=== PATIENT | male | born 1970 | race Caucasian/White ===

== ENCOUNTER → 2016-10-05 | Outpatient (REF) | payer BC ==
[2016-10-05 19:26] LABS: ALBUMIN 4.2 GM/DL (3.2-5.2); ALBUMIN/GLOBULIN RATIO 1.31 (1.00-1.93); ALKALINE PHOSPHATASE 76 U/L (45-117); ALT/SGPT 35 U/L (12-78); ANION GAP 6 MEQ/L (8-16); AST/SGOT 19 U/L (15-37); BILIRUBIN,TOTAL 0.4 MG/DL (0.2-1.0); BLOOD UREA NITROGEN 16 MG/DL (7-18); CALCIUM LEVEL 8.7 MG/DL (8.5-10.1); CARBON DIOXIDE LEVEL 27 MEQ/L (21-32); CHLORIDE LEVEL 105 MEQ/L (98-107); CHOLESTEROL LEVEL 218 MG/DL (<200); CREATININE FOR GFR 1.32 MG/DL (0.70-1.30); GLOMERULAR FILTRATION RATE > 60.0 (>60); GLUCOSE, FASTING 84 MG/DL (70-105); SODIUM LEVEL 138 MEQ/L (136-145); TOTAL PROTEIN 7.4 GM/DL (6.4-8.2); TRIGLYCERIDES LEVEL 458 MG/DL (<150)
[2016-10-06 10:21] LABS: FOLATE > 24.0 NG/ML; VITAMIN B12 LEVEL 485 PG/ML
[2016-10-07 14:15] LABS: %CD3+CD4+CD8+ 0.9 % (Not Estab.); %CD3+CD4+CD8- 21.3 % (Not Estab.); ABS CD3+CD4+CD8+ 29 /uL (Not Estab.); ABS CD3+CD4+CD8- 682 /uL (Not Estab.); ABS CD3+CD4-CD8+ 1504 /uL (Not Estab.); ABS CD3+CD4-CD8- 32 /uL (Not Estab.); CD4/CD8 NYSDOH RATIO 0.45 (Not Estab.); Eosinophils 5 % (.); HCT 40.1 % (37.5-51.0); HGB 13.9 g/dL (12.6-17.7); Monocytes 7 % (.); Neutrophils 28 % (.); WBC 5.4 x10E3/uL (3.4-10.8)
== END ==
LOC: M SFHCPLAZ 15:38
PROVIDERS: ATTEND Internal Medicine Infectious Disease
DX: B20 Human immunodeficiency virus [HIV] disease (principal); E78.5 Hyperlipidemia, unspecified; G62.9 Polyneuropathy, unspecified

== ENCOUNTER → 2017-02-07 | Outpatient (REF) | payer BC ==
[2017-02-07 18:53] LABS: ALBUMIN/GLOBULIN RATIO 1.11 (1.00-1.93); ALKALINE PHOSPHATASE 96 U/L (45-117); ALT/SGPT 31 U/L (12-78); ANION GAP 6 MEQ/L (8-16); AST/SGOT 11 U/L (15-37); BILIRUBIN,TOTAL 0.3 MG/DL (0.2-1.0); BLOOD UREA NITROGEN 14 MG/DL (7-18); CALCIUM LEVEL 8.7 MG/DL (8.5-10.1); CARBON DIOXIDE LEVEL 28 MEQ/L (21-32); CHLORIDE LEVEL 106 MEQ/L (98-107); CREATININE FOR GFR 1.26 MG/DL (0.70-1.30); GLOMERULAR FILTRATION RATE > 60.0 (>60); GLUCOSE, FASTING 114 MG/DL (70-105); SODIUM LEVEL 140 MEQ/L (136-145); TOTAL PROTEIN 7.6 GM/DL (6.4-8.2)
[2017-02-11 08:08] LABS: Eosinophils 4 % (Not Estab.); HCT 45.8 % (37.5-51.0); HGB 15.7 g/dL (12.6-17.7); Lyme Disease IgG/IgM Antibodie <0.91 ISR (0.00-0.90); Lyme Disease IgM Ab Quantitati <0.80 index (0.00-0.79); Monocytes 8 % (Not Estab.); Neutrophils 41 % (Not Estab.); WBC 5.2 x10E3/uL (3.4-10.8)
== END ==
LOC: M SFHCPLAZ 15:28
PROVIDERS: ATTEND Internal Medicine Infectious Disease
DX: M25.50 Pain in unspecified joint (principal); B20 Human immunodeficiency virus [HIV] disease

== ENCOUNTER → 2017-06-01 | Outpatient (REF) | payer BC ==
[2017-06-01 18:31] LABS: BASO # 0.1 10^3/uL (0.0-0.2); BASO % 1.6 % (0.0-1.0); EOS # 0.3 10^3/uL (0.0-0.50); EOS % 5.8 % (0.0-3.0); HEMATOCRIT 43.9 % (42.0-52.0); HEMOGLOBIN 14.7 g/dl (14.0-18.0); IMMATURE GRANULOCYTE % 0.2 % (0-3.0); LYMPH # 2.2 10^3/uL (1.5-4.5); LYMPH % 49.4 % (24.0-44.0); MEAN CORPUSCULAR HEMOGLOBIN 28.9 pg (27.0-33.0); MEAN CORPUSCULAR HGB CONC 33.5 g/dl (32.0-36.5); MEAN CORPUSCULAR VOLUME 86.2 fl (80.0-96.0); MONO # 0.4 10^3/uL (0.0-0.8); MONO % 8.9 % (0.0-5.0); NEUTROPHILS # 1.5 10^3/uL (1.8-7.7); NEUTROPHILS % 34.1 % (36.0-66.0); PLATELET COUNT, AUTOMATED 333 10^3/uL (150-450); RED BLOOD COUNT 5.09 10^6/uL (4.30-6.10); RED CELL DISTRIBUTION WIDTH 12.2 % (11.5-14.5); WHITE BLOOD COUNT 4.5 10^3/uL (4.0-10.0)
[2017-06-01 18:55] LABS: ERYTHROCYTE SEDIMENTATION RATE 11 mm/hr (0-15)
[2017-06-01 20:29] LABS: ALBUMIN 3.9 GM/DL (3.2-5.2); ALKALINE PHOSPHATASE 90 U/L (45-117); ALT/SGPT 31 U/L (12-78); ANION GAP 10 MEQ/L (8-16); AST/SGOT 19 U/L (7-37); BILIRUBIN,TOTAL 0.3 MG/DL (0.2-1.0); BLOOD UREA NITROGEN 17 MG/DL (7-18); C REACTIVE PROTEIN QUANTITATIV < 0.30 MG/DL (0.00-0.30); CALCIUM LEVEL 8.6 MG/DL (8.5-10.1); CARBON DIOXIDE LEVEL 28 MEQ/L (21-32); CHLORIDE LEVEL 103 MEQ/L (98-107); CREATININE FOR GFR 1.43 MG/DL (0.70-1.30); GLOMERULAR FILTRATION RATE 56.7 (>60); GLUCOSE, FASTING 94 MG/DL (70-100); RHEUMATOID FACTOR QUANT < 10.0 IU/ML (0-15.0); SODIUM LEVEL 141 MEQ/L (136-145); TOTAL PROTEIN 7.8 GM/DL (6.4-8.2)
[2017-06-07 00:06] LABS: ANTI DOUBLE STRAND-DNA AB 2 IU/mL (0-9); ANTINUCLEAR ANTIBODIES DIRECT Positive (Negative); HLA-B27 Negative (.); Lyme Disease IgG/IgM Antibodie <0.91 ISR (0.00-0.90); Lyme Disease IgM Ab Quantitati <0.80 index (0.00-0.79); RNP ANTIBODIES 1.2 AI (0.0-0.9); SJOGREN'S ANTI SS-A <0.2 AI (0.0-0.9); SJOGREN'S ANTI SS-B <0.2 AI (0.0-0.9); SMITH ANTIBODIES <0.2 AI (0.0-0.9)
[2017-06-07 00:06] LABS: CYCLIC CITRULLINATED PEPTIDE 11 units (0-19)
== END ==
LOC: M LABDRAW1 15:30
DX: M06.4 Inflammatory polyarthropathy (principal)

== ENCOUNTER → 2017-06-01 | Outpatient (REF) | payer BC ==
[2017-06-01 18:36] LABS: APPEARANCE, URINE CLEAR (CLEAR); BACTERIA, URINE AUTO NEGATIVE (NEGATIVE); BILIRUBIN, URINE AUTO NEGATIVE (NEGATIVE); BLOOD, URINE BLOOD NEGATIVE (NEGATIVE); COLOR, URINE YELLOW (YELLOW); GLUCOSE, URINE (UA) AUTO NEGATIVE (NEGATIVE); KETONE, URINE AUTO NEGATIVE (NEGATIVE); LEUKOCYTE ESTERASE, URINE AUTO TRACE (NEGATIVE); NITRITE, URINE AUTO NEGATIVE (NEGATIVE); PROTEIN, URINE AUTO NEGATIVE (NEGATIVE); RBC, URINE AUTO 0 /HPF (0-3); SPECIFIC GRAVITY URINE AUTO 1.016 (1.002-1.035); SQUAMOUS EPITHELIAL CELL UR AU 0 /HPF (0-6); UROBILINOGEN, URINE AUTO 0.2 mg/dL (0.0-2.0); WBC, URINE AUTO 1 /HPF (0-3)
[2017-06-01 20:44] LABS: ALBUMIN/GLOBULIN RATIO 1.11 (1.00-1.93); ALKALINE PHOSPHATASE 86 U/L (45-117); ALT/SGPT 29 U/L (12-78); ANION GAP 9 MEQ/L (8-16); AST/SGOT 17 U/L (7-37); BILIRUBIN,TOTAL 0.3 MG/DL (0.2-1.0); BLOOD UREA NITROGEN 17 MG/DL (7-18); CALCIUM LEVEL 8.8 MG/DL (8.5-10.1); CARBON DIOXIDE LEVEL 27 MEQ/L (21-32); CHLORIDE LEVEL 104 MEQ/L (98-107); CREATININE FOR GFR 1.43 MG/DL (0.70-1.30); GLOMERULAR FILTRATION RATE 56.7 (>60); GLUCOSE, FASTING 95 MG/DL (70-100); SODIUM LEVEL 140 MEQ/L (136-145); TOTAL PROTEIN 7.6 GM/DL (6.4-8.2)
[2017-06-01 21:28] LABS: CHLAMYDIA DNA AMPLIFICATION NEGATIVE (NEGATIVE); GC DNA AMPLIFICATION NEGATIVE (NEGATIVE)
[2017-06-03 14:10] LABS: QUANTIFERON GOLD TB Negative (Negative); TB Test (QFT) Antigen 0.05 IU/mL (.); TB Test (QFT) Antigen Minus Ni <0.01 IU/mL (.); TB Test (QFT) Mitogen 5.14 IU/mL (.); TB Test (QFT) Nil 0.07 IU/mL (.)
[2017-06-06 14:13] LABS: HIV-1 RNA PCR QUANT 2 LC550285 <20 copies/mL (.)
[2017-06-08 00:07] LABS: % CD8 Pos Lymph 45.6 % (12.0-35.5); %CD4 Pos Lymphs 29.6 % (30.8-58.5); ABS Basophils 0.1 x10E3/uL (0.0-0.2); ABS Eosinophils 0.2 x10E3/uL (0.0-0.4); ABS Lymphs 2.3 x10E3/uL (0.7-3.1); ABS Monocytes 0.3 x10E3/uL (0.1-0.9); ABS Neutophils 1.5 x10E3/uL (1.4-7.0); Abs CD4 Helper 681 /uL (359-1519); Abs CD8 Suppres 1049 /uL (109-897); CD4/CD8 Ratio 0.65 (0.92-3.72); Eosinophils 6 % (Not Estab.); HCT 42.3 % (37.5-51.0); HGB 14.5 g/dL (13.0-17.7); Immature Grans 0 % (Not Estab.); Lymphocytes 51 % (Not Estab.); MCH 29.2 pg (26.6-33.0); MCHC 34.3 g/dL (31.5-35.7); MCV 85 fL (79-97); Monocytes 7 % (Not Estab.); Neutrophils 34 % (Not Estab.); Platelets 316 x10E3/uL (150-379); RBC 4.97 x10E6/uL (4.14-5.80); RDW 13.4 % (12.3-15.4); RPR Non Reactive (Non Reactive); T PALLIDUM ANTIBODIES Positive (Negative); T PALLIDUM IMMUNOBLOT Positive (Negative); WBC 4.4 x10E3/uL (3.4-10.8)
== END ==
LOC: M LABDRAW1 15:25
DX: B20 Human immunodeficiency virus [HIV] disease (principal)

== ENCOUNTER → 2017-08-04 | Outpatient (REF) | payer BC ==
[2017-08-04 19:16] LABS: BASO # 0.1 10^3/uL (0.0-0.2); EOS # 0.8 10^3/uL (0.0-0.50); EOS % 14.7 % (0.0-3.0); HEMATOCRIT 41.5 % (42.0-52.0); HEMOGLOBIN 14.3 g/dl (13.5-17.5); IMMATURE GRANULOCYTE % 0.4 % (0-3.0); LYMPH # 2.1 10^3/uL (1.5-4.5); MEAN CORPUSCULAR HGB CONC 34.5 g/dl (32.0-36.5); MEAN CORPUSCULAR VOLUME 84.2 fl (80.0-96.0); MONO # 0.5 10^3/uL (0.0-0.8); MONO % 10.4 % (0.0-5.0); NEUTROPHILS # 1.6 10^3/uL (1.8-7.7); NEUTROPHILS % 31.5 % (36.0-66.0); PLATELET COUNT, AUTOMATED 310 10^3/uL (150-450); RED BLOOD COUNT 4.93 10^6/uL (4.30-6.10); RED CELL DISTRIBUTION WIDTH 12.9 % (11.5-14.5); WHITE BLOOD COUNT 5.1 10^3/uL (4.0-10.0)
[2017-08-04 19:27] LABS: POSITIVE MORPH POS FLAG
== END ==
LOC: M LABDRAW1 15:20
DX: M79.7 Fibromyalgia (principal); M06.4 Inflammatory polyarthropathy
CPT/HCPCS: 85027

== ENCOUNTER → 2017-11-02 | Outpatient (REF) | payer BC ==
[2017-11-02 16:36] LABS: ALBUMIN 3.5 GM/DL (3.2-5.2); ALBUMIN/GLOBULIN RATIO 1.06 (1.00-1.93); ALKALINE PHOSPHATASE 72 U/L (45-117); ALT/SGPT 29 U/L (12-78); ANION GAP 6 MEQ/L (8-16); AST/SGOT 14 U/L (7-37); BILIRUBIN,TOTAL 0.2 MG/DL (0.2-1.0); BLOOD UREA NITROGEN 10 MG/DL (7-18); CALCIUM LEVEL 8.4 MG/DL (8.5-10.1); CARBON DIOXIDE LEVEL 29 MEQ/L (21-32); CHLORIDE LEVEL 108 MEQ/L (98-107); CREATININE FOR GFR 1.35 MG/DL (0.70-1.30); GLOMERULAR FILTRATION RATE > 60.0 (>60); GLUCOSE, FASTING 106 MG/DL (70-100); POTASSIUM SERUM 4.2 MEQ/L (3.5-5.1); SODIUM LEVEL 143 MEQ/L (136-145); TOTAL PROTEIN 6.8 GM/DL (6.4-8.2)
[2017-11-02 19:58] LABS: APPEARANCE, URINE CLEAR (CLEAR); BACTERIA, URINE AUTO NEGATIVE (NEGATIVE); BILIRUBIN, URINE AUTO NEGATIVE (NEGATIVE); BLOOD, URINE BLOOD NEGATIVE (NEGATIVE); COLOR, URINE YELLOW (YELLOW); GLUCOSE, URINE (UA) AUTO NEGATIVE (NEGATIVE); KETONE, URINE AUTO TRACE mg/dL (NEGATIVE); LEUKOCYTE ESTERASE, URINE AUTO NEGATIVE (NEGATIVE); NITRITE, URINE AUTO NEGATIVE (NEGATIVE); PROTEIN, URINE AUTO NEGATIVE (NEGATIVE); RBC, URINE AUTO 0 /HPF (0-3); SPECIFIC GRAVITY URINE AUTO 1.015 (1.002-1.035); SQUAMOUS EPITHELIAL CELL UR AU 0 /HPF (0-6); UROBILINOGEN, URINE AUTO 0.2 mg/dL (0.0-2.0); WBC, URINE AUTO 0 /HPF (0-3)
[2017-11-02 21:18] LABS: CHLAMYDIA DNA AMPLIFICATION NEGATIVE (NEGATIVE); GC DNA AMPLIFICATION NEGATIVE (NEGATIVE)
[2017-11-17 09:39] LABS: CHLAMYDIA PHARYNGEAL APTIMA Negative (Negative); CHLAMYDIA RECTAL APTIMA Negative (Negative); GC PHARYNGEAL APTIMA Negative (Negative); GC RECTAL APTIMA Negative (Negative); HIV-1 RNA PCR QUANT 2 LC550285 <20 copies/mL (.); HSV TYPE II IgG SPECIFIC 0.95 index (0.00-0.90); HSV-2 IgG Confirmation Negative (Negative); RPR Non Reactive (Non Reactive)
== END ==
LOC: M SFHCPLAZ 12:00
DX: Z72.52 High risk homosexual behavior (principal); B20 Human immunodeficiency virus [HIV] disease
CPT/HCPCS: 80053

== ENCOUNTER → 2017-11-08 | Outpatient (REF) | payer BC ==
[2017-11-11 00:05] LABS: % CD8 Pos Lymph 44.7 % (12.0-35.5); %CD4 Pos Lymphs 31.6 % (30.8-58.5); ABS Eosinophils 0.2 x10E3/uL (0.0-0.4); ABS Lymphs 1.5 x10E3/uL (0.7-3.1); ABS Monocytes 0.4 x10E3/uL (0.1-0.9); ABS Neutophils 2.6 x10E3/uL (1.4-7.0); Abs CD4 Helper 474 /uL (359-1519); Abs CD8 Suppres 671 /uL (109-897); CD4/CD8 Ratio 0.71 (0.92-3.72); Eosinophils 4 % (Not Estab.); HCT 42.5 % (37.5-51.0); HGB 14.2 g/dL (13.0-17.7); Immature Grans 0 % (Not Estab.); Lymphocytes 31 % (Not Estab.); MCH 29.7 pg (26.6-33.0); MCHC 33.4 g/dL (31.5-35.7); MCV 89 fL (79-97); Monocytes 9 % (Not Estab.); Neutrophils 55 % (Not Estab.); Platelets 273 x10E3/uL (150-379); RBC 4.78 x10E6/uL (4.14-5.80); RDW 14.2 % (12.3-15.4); WBC 4.7 x10E3/uL (3.4-10.8)
== END ==
LOC: M SFHCPLAZ 15:34
DX: B20 Human immunodeficiency virus [HIV] disease (principal); Z72.52 High risk homosexual behavior

== ENCOUNTER → 2017-12-28 | Outpatient (REF) | payer BC ==
[2017-12-28 18:23] LABS: CHLAMYDIA DNA AMPLIFICATION NEGATIVE (NEGATIVE); GC DNA AMPLIFICATION POSITIVE (NEGATIVE)
== END ==
LOC: M LAB REF 16:36
DX: Z11.3 Encounter for screening for infections with a predominantly sexual mode of transmission (principal)

== ENCOUNTER → 2018-02-28 | Outpatient (REF) | payer MEDICAID ==
[2018-02-28 18:01] LABS: APPEARANCE, URINE CLEAR (CLEAR); BACTERIA, URINE AUTO NEGATIVE (NEGATIVE); BILIRUBIN, URINE AUTO NEGATIVE (NEGATIVE); BLOOD, URINE BLOOD NEGATIVE (NEGATIVE); COLOR, URINE YELLOW (YELLOW); GLUCOSE, URINE (UA) AUTO NEGATIVE (NEGATIVE); KETONE, URINE AUTO NEGATIVE (NEGATIVE); LEUKOCYTE ESTERASE, URINE AUTO NEGATIVE (NEGATIVE); NITRITE, URINE AUTO NEGATIVE (NEGATIVE); PROTEIN, URINE AUTO NEGATIVE (NEGATIVE); RBC, URINE AUTO 0 /HPF (0-3); SPECIFIC GRAVITY URINE AUTO 1.008 (1.002-1.035); SQUAMOUS EPITHELIAL CELL UR AU 0 /HPF (0-6); UROBILINOGEN, URINE AUTO 0.2 mg/dL (0.0-2.0); WBC, URINE AUTO 0 /HPF (0-3)
[2018-02-28 18:13] LABS: ALBUMIN 3.8 GM/DL (3.2-5.2); ALBUMIN/GLOBULIN RATIO 0.97 (1.00-1.93); ALKALINE PHOSPHATASE 114 U/L (45-117); ALT/SGPT 46 U/L (12-78); ANION GAP 4 MEQ/L (8-16); AST/SGOT 30 U/L (7-37); BILIRUBIN,TOTAL 0.3 MG/DL (0.2-1.0); BLOOD UREA NITROGEN 17 MG/DL (7-18); CALCIUM LEVEL 8.9 MG/DL (8.5-10.1); CARBON DIOXIDE LEVEL 32 MEQ/L (21-32); CHLORIDE LEVEL 104 MEQ/L (98-107); CREATININE FOR GFR 1.27 MG/DL (0.70-1.30); GLOMERULAR FILTRATION RATE > 60.0 (>60); GLUCOSE, FASTING 68 MG/DL (70-100); POTASSIUM SERUM 4.6 MEQ/L (3.5-5.1); SODIUM LEVEL 140 MEQ/L (136-145); TOTAL PROTEIN 7.7 GM/DL (6.4-8.2)
[2018-02-28 19:34] LABS: CHLAMYDIA DNA AMPLIFICATION NEGATIVE (NEGATIVE); GC DNA AMPLIFICATION NEGATIVE (NEGATIVE)
[2018-03-07 00:06] LABS: % CD8 Pos Lymph 46.4 % (12.0-35.5); %CD4 Pos Lymphs 26.8 % (30.8-58.5); ABS Basophils 0.1 x10E3/uL (0.0-0.2); ABS Eosinophils 0.2 x10E3/uL (0.0-0.4); ABS Lymphs 2.7 x10E3/uL (0.7-3.1); ABS Monocytes 0.7 x10E3/uL (0.1-0.9); ABS Neutophils 2.1 x10E3/uL (1.4-7.0); Abs CD4 Helper 724 /uL (359-1519); Abs CD8 Suppres 1253 /uL (109-897); CD4/CD8 Ratio 0.58 (0.92-3.72); Eosinophils 3 % (Not Estab.); HCT 45.3 % (37.5-51.0); HIV-1 RNA PCR QUANT 2 LC550285 <20 copies/mL (.); HSV TYPE II IgG SPECIFIC 3.05 index (0.00-0.90); HSV-2 IgG Confirmation Positive (Negative); Immature Grans 0 % (Not Estab.); Lymphocytes 47 % (Not Estab.); MCH 29.4 pg (26.6-33.0); MCHC 33.1 g/dL (31.5-35.7); MCV 89 fL (79-97); Monocytes 12 % (Not Estab.); Neutrophils 37 % (Not Estab.); Platelets 274 x10E3/uL (150-379); RBC 5.11 x10E6/uL (4.14-5.80); RDW 14.7 % (12.3-15.4); WBC 5.8 x10E3/uL (3.4-10.8)
== END ==
LOC: M SFHCPLAZ 15:31
DX: B20 Human immunodeficiency virus [HIV] disease (principal); Z11.3 Encounter for screening for infections with a predominantly sexual mode of transmission
CPT/HCPCS: 80053

== ENCOUNTER → 2018-03-06 | Outpatient (REF) | payer MEDICAID, OTHER ==
[2018-03-09 00:56] LABS: CHLAMYDIA PHARYNGEAL APTIMA Negative (Negative); GC PHARYNGEAL APTIMA Positive (Negative)
== END ==
LOC: M SFHCPLAZ 12:37
DX: Z11.3 Encounter for screening for infections with a predominantly sexual mode of transmission (principal)

== ENCOUNTER → 2018-05-09 | Outpatient (REF) ==
--- NOTE | 2018-05-09 14:03 | REP ---
LUMBAR SPINE, THREE VIEWS: HISTORY: Degenerative disc disease. There is no acute fracture or subluxation. The L4-5 and L5-S1 intervertebral discs are decreased in height consistent with disc degeneration. Osteophytes are present on L5 and S1. IMPRESSION:Degenerative change as described above. Electronically Signed by Kt Ariza MD 05/09/2018 02:06 P
== END ==
LOC: M SMT 13:06
PROVIDERS: ATTEND Internal Medicine
DX: Z02.71 Encounter for disability determination (principal)

== ENCOUNTER → 2018-05-29 | Outpatient (REF) | payer OTHER | LOC: M SFHCPLAZ 12:46 | PROVIDERS: ATTEND Internal Medicine Infectious Disease | DX: R19.7 Diarrhea, unspecified (principal); Z53.9 Procedure and treatment not carried out, unspecified reason ==

== ENCOUNTER → 2018-06-01 | Outpatient (REF) | payer OTHER | LOC: M SFHCPLAZ 12:55 | PROVIDERS: ATTEND Internal Medicine Infectious Disease | DX: R19.7 Diarrhea, unspecified (principal) ==

== ENCOUNTER → 2018-06-22 | Outpatient (REF) | payer OTHER ==
[2018-06-22 12:28] LABS: AMORPHOUS SEDIMENT SMALL (NEGATIVE); APPEARANCE, URINE HAZY (CLEAR); BACTERIA, URINE AUTO NEGATIVE (NEGATIVE); BILIRUBIN, URINE AUTO NEGATIVE (NEGATIVE); BLOOD, URINE BLOOD NEGATIVE (NEGATIVE); COLOR, URINE YELLOW (YELLOW); GLUCOSE, URINE (UA) AUTO NEGATIVE (NEGATIVE); KETONE, URINE AUTO NEGATIVE (NEGATIVE); LEUKOCYTE ESTERASE, URINE AUTO NEGATIVE (NEGATIVE); NITRITE, URINE AUTO NEGATIVE (NEGATIVE); PROTEIN, URINE AUTO NEGATIVE (NEGATIVE); RBC, URINE AUTO 1 /HPF (0-3); SPECIFIC GRAVITY URINE AUTO 1.005 (1.002-1.035); SQUAMOUS EPITHELIAL CELL UR AU 0 /HPF (0-6); UROBILINOGEN, URINE AUTO 0.2 mg/dL (0.0-2.0); WBC, URINE AUTO 0 /HPF (0-3)
[2018-06-22 13:11] LABS: ALBUMIN 3.6 GM/DL (3.2-5.2); ALT/SGPT 37 U/L (12-78); BILIRUBIN,TOTAL 0.3 MG/DL (0.2-1.0); BLOOD UREA NITROGEN 19 MG/DL (7-18); CALCIUM LEVEL 8.7 MG/DL (8.5-10.1); CARBON DIOXIDE LEVEL 26 MEQ/L (21-32); CHLORIDE LEVEL 105 MEQ/L (98-107); CHOLESTEROL LEVEL 178 MG/DL (<200); CHOLESTEROL RISK RATIO 5.085 (<5); GLOMERULAR FILTRATION RATE > 60.0 (>60); GLUCOSE, FASTING 109 MG/DL (70-100); HDL CHOLESTEROL 35 MG/DL (>40); LDL CHOLESTEROL 80 MG/DL (<100); NON-HDL-C 143 MG/DL; POTASSIUM SERUM 4.6 MEQ/L (3.5-5.1); SODIUM LEVEL 139 MEQ/L (136-145); TOTAL PROTEIN 8.8 GM/DL (6.4-8.2); TRIGLYCERIDES LEVEL 317 MG/DL (<150)
[2018-06-22 13:36] LABS: HEPATITIS C VIRUS ABY INDEX 0.1 INDEX (<0.8)
[2018-06-22 16:16] LABS: CHLAMYDIA DNA AMPLIFICATION NEGATIVE (NEGATIVE); GC DNA AMPLIFICATION NEGATIVE (NEGATIVE)
== END ==
LOC: M SFHCPLAZ 10:14
PROVIDERS: ATTEND Internal Medicine Infectious Disease
DX: B20 Human immunodeficiency virus [HIV] disease (principal); E78.5 Hyperlipidemia, unspecified; Z86.19 Personal history of other infectious and parasitic diseases

== ENCOUNTER → 2018-07-02 | Outpatient (REF) | payer OTHER ==
[2018-07-06 14:26] LABS: CHLAMYDIA PHARYNGEAL APTIMA Negative (Negative); CHLAMYDIA RECTAL APTIMA Positive (Negative); GC PHARYNGEAL APTIMA Negative (Negative); GC RECTAL APTIMA Negative (Negative)
== END ==
LOC: M SFHCPLAZ 17:08
PROVIDERS: ATTEND Internal Medicine Infectious Disease
DX: B20 Human immunodeficiency virus [HIV] disease (principal)

== ENCOUNTER → 2018-10-29 | Outpatient (REF) | payer OTHER ==
[2018-10-29 13:26] LABS: APPEARANCE, URINE CLEAR (CLEAR); BACTERIA, URINE AUTO NEGATIVE (NEGATIVE); BILIRUBIN, URINE AUTO NEGATIVE (NEGATIVE); BLOOD, URINE BLOOD NEGATIVE (NEGATIVE); COLOR, URINE YELLOW (YELLOW); GLUCOSE, URINE (UA) AUTO NEGATIVE (NEGATIVE); KETONE, URINE AUTO NEGATIVE (NEGATIVE); LEUKOCYTE ESTERASE, URINE AUTO NEGATIVE (NEGATIVE); MUCUS, URINE SMALL (NEGATIVE); NITRITE, URINE AUTO NEGATIVE (NEGATIVE); PROTEIN, URINE AUTO NEGATIVE (NEGATIVE); RBC, URINE AUTO 0 /HPF (0-3); SPECIFIC GRAVITY URINE AUTO 1.011 (1.002-1.035); SQUAMOUS EPITHELIAL CELL UR AU 0 /HPF (0-6); UROBILINOGEN, URINE AUTO 0.2 mg/dL (0.0-2.0); WBC, URINE AUTO 0 /HPF (0-3)
[2018-10-29 13:39] LABS: ALBUMIN 3.9 GM/DL (3.2-5.2); ALT/SGPT 48 U/L (12-78); BILIRUBIN,TOTAL 0.3 MG/DL (0.2-1.0); BLOOD UREA NITROGEN 17 MG/DL (7-18); CALCIUM LEVEL 8.5 MG/DL (8.5-10.1); CARBON DIOXIDE LEVEL 30 MEQ/L (21-32); CHLORIDE LEVEL 102 MEQ/L (98-107); CHOLESTEROL LEVEL 204 MG/DL (<200); CHOLESTEROL RISK RATIO 4.533 (<5); CREATININE FOR GFR 1.19 MG/DL (0.70-1.30); GLOMERULAR FILTRATION RATE > 60.0 (>60); GLUCOSE, FASTING 77 MG/DL (70-100); HDL CHOLESTEROL 45 MG/DL (>40); LDL CHOLESTEROL 84 MG/DL (<100); NON-HDL-C 159 MG/DL; POTASSIUM SERUM 4.3 MEQ/L (3.5-5.1); SODIUM LEVEL 138 MEQ/L (136-145); TOTAL PROTEIN 7.6 GM/DL (6.4-8.2); TRIGLYCERIDES LEVEL 377 MG/DL (<150)
[2018-10-29 15:17] LABS: CHLAMYDIA DNA AMPLIFICATION NEGATIVE (NEGATIVE); GC DNA AMPLIFICATION NEGATIVE (NEGATIVE)
[2018-10-31 00:06] LABS: CHLAMYDIA PHARYNGEAL APTIMA Negative (Negative); GC PHARYNGEAL APTIMA Negative (Negative)
[2018-10-31 10:06] LABS: CHLAMYDIA RECTAL APTIMA Negative (Negative); GC RECTAL APTIMA Negative (Negative)
[2018-11-01 00:06] LABS: % CD8 Pos Lymph 50.4 % (12.0-35.5); %CD4 Pos Lymphs 22.3 % (30.8-58.5); ABS Basophils 0.1 x10E3/uL (0.0-0.2); ABS Eosinophils 0.3 x10E3/uL (0.0-0.4); ABS Lymphs 2.3 x10E3/uL (0.7-3.1); ABS Monocytes 0.6 x10E3/uL (0.1-0.9); ABS Neutophils 2.1 x10E3/uL (1.4-7.0); Abs CD4 Helper 513 /uL (359-1519); Abs CD8 Suppres 1159 /uL (109-897); CD4/CD8 Ratio 0.44 (0.92-3.72); Eosinophils 5 % (Not Estab.); HCT 42.1 % (37.5-51.0); HGB 14.5 g/dL (13.0-17.7); HIV-1 RNA PCR QUANT 2 LC550285 <20 copies/mL (.); Immature Grans 0 % (Not Estab.); Lymphocytes 45 % (Not Estab.); MCH 28.9 pg (26.6-33.0); MCHC 34.4 g/dL (31.5-35.7); MCV 84 fL (79-97); Monocytes 10 % (Not Estab.); Neutrophils 39 % (Not Estab.); Platelets 260 x10E3/uL (150-450); RBC 5.02 x10E6/uL (4.14-5.80); RDW 15.1 % (12.3-15.4); WBC 5.4 x10E3/uL (3.4-10.8)
== END ==
LOC: M SFHCPLAZ 10:52
PROVIDERS: ATTEND Internal Medicine Infectious Disease
DX: B20 Human immunodeficiency virus [HIV] disease (principal); E78.5 Hyperlipidemia, unspecified; A56.3 Chlamydial infection of anus and rectum

== ENCOUNTER → 2018-12-13 | Outpatient (CLI) | payer OTHER ==
[~2018-12-13] MED LIST: BIKT1TAB; BIKT1TAB PO; CYCL10TA; CYCL10TA PO; DULO1CAP6; DULO60CA35 PO; HYDR200T3; HYDR200T3 PO; LAMO100T3; LAMO100T3 PO; LYRI200C; LYRI200C PO; SILD50TA2; TRAZ-257; TRAZ-257 PO; VALA-3; VALT500T PO; VIAG100T PO
--- NOTE | 2018-12-19 14:39 | SLEEPHOME ---
DATE OF STUDY: 12/13/2018 ORDERED BY: MUKUND Yoder Diagnostic home sleep testing was performed due to concern for the obstructive sleep apnea syndrome. For testing, a nocturnal T3 respiratory monitoring device was used. Continuous record was made of pulse, oxygen saturation, airflow, chest and abdominal strain, and body position. 10 hours and 59 minutes of data were reviewed. There were 5 hours and 47 minutes marked as time in bed. During the interval marked time in bed there were 82 respiratory events identified of 10 seconds in duration or greater for a respiratory event index of 14.2. The events were primarily obstructive, 16 mixed and central apneas were seen. Baseline pulse rate 97, pulse rate ranged as low as 28 up to 176. Baseline saturation 94%. Saturations fell to 81%. Testing was performed in both the supine and nonsupine positions. IMPRESSION: Abnormal home sleep testing with repetitive respiratory events and oxygen desaturations to 81% with a respiratory event index of 14.2 is consistent with the obstructive sleep apnea syndrome. RECOMMENDATION: The patient should be encouraged to undergo formal sleep evaluation. cc: Nadir Valera MD
== END ==
LOC: M SLEEP HO 11:54
PROVIDERS: ATTEND Nurse Practitioner Family
DX: R40.0 Somnolence (principal)

== ENCOUNTER 2018-12-17 18:16 | Observation (INO) | payer OTHER ==
[~2018-12-17] VITALS: Ht 175.3 cm; Wt 91.1 kg
[2018-12-17] MEDS ORDERED: NS 1,000 ML IV ONE (18:30)
[2018-12-17] MEDS ORDERED: VALA-3 (18:37)
[2018-12-17] MEDS ORDERED: LYRI200C (18:37)
[2018-12-17] MEDS ORDERED: CYCL10TA (18:37)
[2018-12-17] MEDS ORDERED: BIKT1TAB (18:37)
[2018-12-17] MEDS ORDERED: LAMO100T (18:37)
[2018-12-17] MEDS ORDERED: HYDR200T3 (18:37)
[2018-12-17] MEDS ORDERED: TRAZ-163 (18:37)
[2018-12-17] MEDS ORDERED: DULO1CAP6 (18:37)
[2018-12-17] MEDS ORDERED: SILD50TA2 (18:37)
[2018-12-17 18:56] LABS: BASO # 0.1 10^3/uL (0.0-0.2); BASO % 0.9 % (0.0-1.0); EOS # 0.2 10^3/uL (0.0-0.50); EOS % 1.7 % (0.0-3.0); HEMATOCRIT 44.8 % (42.0-52.0); HEMOGLOBIN 15.6 g/dl (13.5-17.5); LYMPH # 1.9 10^3/uL (1.5-4.5); LYMPH % 19.3 % (24.0-44.0); MEAN CORPUSCULAR HEMOGLOBIN 29.7 pg (27.0-33.0); MEAN CORPUSCULAR HGB CONC 34.8 g/dl (32.0-36.5); MEAN CORPUSCULAR VOLUME 85.2 fl (80.0-96.0); MONO # 1.1 10^3/uL (0.0-0.8); MONO % 11.4 % (0.0-5.0); NEUTROPHILS # 6.6 10^3/uL (1.8-7.7); NEUTROPHILS % 66.4 % (36.0-66.0); PLATELET COUNT, AUTOMATED 341 10^3/uL (150-450); RED BLOOD COUNT 5.26 10^6/uL (4.30-6.10); WHITE BLOOD COUNT 9.9 10^3/uL (4.0-10.0)
[2018-12-17 19:43] LABS: ACETAMINOPHEN LEVEL < 2.0 UG/ML (10.0-30.0); ALBUMIN 4.5 GM/DL (3.2-5.2); ALT/SGPT 53 U/L (12-78); BILIRUBIN,DIRECT 0.3 MG/DL (0.0-0.2); BILIRUBIN,TOTAL 0.9 MG/DL (0.2-1.0); BLOOD UREA NITROGEN 16 MG/DL (7-18); CALCIUM LEVEL 9.2 MG/DL (8.5-10.1); CARBON DIOXIDE LEVEL 24 MEQ/L (21-32); CHLORIDE LEVEL 104 MEQ/L (98-107); CPK CREATINE PHOSPHOKINASE 2667 U/L (39-308); CREATININE FOR GFR 1.78 MG/DL (0.70-1.30); ETHYL ALCOHOL (ETHANOL) < 0.003 % (0.000-0.010); GLOMERULAR FILTRATION RATE 43.8 (>60); GLUCOSE, FASTING 93 MG/DL (70-100); POTASSIUM SERUM 3.3 MEQ/L (3.5-5.1); SALICYLATE LEVEL < 1.7 MG/DL (5.0-30.0); SODIUM LEVEL 139 MEQ/L (136-145); TOTAL PROTEIN 8.2 GM/DL (6.4-8.2); TROPONIN I < 0.02 NG/ML (< 0.10)
--- NOTE | 2018-12-17 20:34 | REPVR ---
EXAM: CT Head Without Contrast EXAM DATE/TIME: 12/17/2018 7:13 PM CLINICAL HISTORY: 48 years old, male; Pain; Headache; Additional info: Altered ms TECHNIQUE: Imaging protocol: Computed tomography images of the head without contrast. Radiation optimization: All CT scans at this facility use at least one of these dose optimization techniques: automated exposure control; mA and/or kV adjustment per patient size (includes targeted exams where dose is matched to clinical indication); or iterative reconstruction. COMPARISON: No relevant prior studies available. FINDINGS: Brain: No intracranial hemorrhage or extra-axial fluid collection. No evidence of mass effect or midline shift. Carroll-white matter differentiation is intact. Ventricles: No ventriculomegaly. Bones/joints: No acute osseus lesion or fracture. Sinuses: Mild mucosal thickening of the paranasal sinuses. Mastoid air cells: Unremarkable. Soft tissues: Unremarkable. IMPRESSION: 1. No acute intracranial pathology. 2. Mild mucosal thickening of the paranasal sinuses. Electronically signed by: Robert Brunner On 12/17/2018 20:33:59 PM
[2018-12-17] MEDS ORDERED: NS 2,670 ML in APPROPRIATE DILUENT 1 EA IV ONE (20:45)
[2018-12-17 20:47] LABS: AMPHETAMINES LEVEL URINE POSITIVE (NEGATIVE); BARBITURATES URINE POSITIVE (NEGATIVE); BENZODIAZEPINES URINE NEGATIVE (NEGATIVE); CANNABINOIDS URINE NEGATIVE (NEGATIVE); COCAINE METABOLITE URINE NEGATIVE (NEGATIVE); METHADONE URINE NEGATIVE (NEGATIVE); OPIATES URINE NEGATIVE (NEGATIVE); PHENCYCLIDINE URINE NEGATIVE (NEGATIVE)
--- NOTE | 2018-12-17 20:56 | ECGEPIP ---
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
[2018-12-18] MEDS ORDERED: ACETAMINOPHEN TAB 650MG DOSE (2X325MG) PO PRN (01:00)
[2018-12-18] MEDS ORDERED: LAMO100T PO (01:02)
[2018-12-18] MEDS ORDERED: BIKT1TAB PO (01:02)
[2018-12-18] MEDS ORDERED: HYDR200T3 PO (01:02)
[2018-12-18] MEDS ORDERED: LYRI200C PO (01:02)
[2018-12-18] MEDS ORDERED: CYCL10TA PO (01:02)
[2018-12-18] MEDS ORDERED: VALT500T PO (01:02)
[2018-12-18] MEDS ORDERED: TRAZ-163 PO (01:02)
[2018-12-18] MEDS ORDERED: DULO60CA35 PO (01:02)
[2018-12-18] MEDS ORDERED: LORazepam 0.5 MG TAB PO PRN (01:30)
[2018-12-18] MEDS: HYDROXYCHLOROQUINE 200 MG TAB PO SCH ×3 (02:15→21:17)
[2018-12-18] MEDS: DULoxetine 30 MG CAP (CYMBALTA) PO SCH ×3 (02:15→21:17)
[2018-12-18] MEDS: PREGABALIN 100 MG CAP (LYRICA) PO SCH ×4 (02:15→21:17)
[2018-12-18] MEDS: NS 1,000 ML IV SCH ×4 (02:19→21:16)
[2018-12-18] MEDS: traZODone 100 MG TAB PO PRN ×2 (02:19→21:26)
--- NOTE | 2018-12-18 02:32 | HPEPDOC ---
[facility] Medical History & Physical Date of Admission Dec 18, 2018 Date of Service: Dec 18, 2018 Primary Care Physician: Nadir Valera MD Attending Physician: KIMMY DAVIS MD History and Physical PRIMARY CARE PROVIDER: Nadir Valera ATTENDING: Dr. Kimmy Davis CHIEF COMPLAINT: Altered mental status HISTORY OF PRESENT ILLNESS: Patient is a 48 year old male presenting with chief complaint of altered mental status. The patient was brought into the emergency department by police after a neighbor called [place] [employer] when they noticed the patient acting strangely. Per the ER report, he was searching for people in his garage and a tree that he felt were trying to get him. Per the patient's own report, the police felt he was being more aggressive and acting more agitated than he actually was. On arrival to the emergency department he was still agitated but after receiving some normal saline that seemed to calm down on its own. On speaking to him, patient states that he used methamphetamine this past Monday and that's why he was altered. He also complains of poor sleep, dry mouth, dry eyes. He states that the dryness is because of his sjogrens but he admits the inability to sleep is likely from the amphetamine use. In the emergency department they did lab work that did show urine amphetamines as well as urine barbiturates however he denies any other illicit drug use in the past week at this time. Other than his poor sleep, he currently has no complaints. He does note that he feels somewhat tremulous but states that this has been worsening for at least the last 1.5 months, but did exist at baseline prior to 1.5 months ago. PAST MEDICAL HISTORY: HIV diagnosed in 1999, HIV viral load undetected last done 06/2018. Fibromyalgia Sjogren's disease Hypertension Hyperlipidemia Bipolar depression Oral herpes Cervical DDD PAST SURGICAL HISTORY: None SOCIAL HISTORY: Denies alcohol use, denies use of tobacco products, admits to methamphetamine, propofol, and marijuana use. Denies any heroin, cocaine use. FAMILY HISTORY: Noncontributory ALLERGIES: Please see below. REVIEW OF SYSTEMS: GENERAL: Denies fevers, chills, recent unexpected weight change, night sweats, hemoptysis HEENT: admits to chronic headaches,Denies dizziness, vision changes, hearing loss, sore throat. Admits to dry mouth, dry eyes CARDIOVASCULAR: Denies chest pain, palpitations, orthopnea RESPIRATORY: Denies shortness of breath, wheezing, cough GASTROINTESTINAL: denies nausea, vomiting, abdominal pain, constipation, diarrhea, bloody stool GENITOURINARY: Denies dysuria,urinary urgency, hematuria. MUSCULOSKELETAL: Denies new or worsening muscle/joint pain outside of his chronic fibromyalgia, denies weakness, stiffness NEUROLOGICAL: Denies any numbness/tingling, focal weakness, or syncope PSYCH: Admits to hallucinations earlier in the day but none currently. HOME MEDICATIONS: Please see below. PHYSICAL EXAMINATION: Vitals: (see below) General: No acute distress, laying comfortably in bed. HEENT: Normocephalic, atraumatic. EOMI. No scleral icterus. Moist mucous membranes. No pharyngeal erythema or uvular deviation. Neck: No JVD, lymphadenopathy, or thyromegaly. Cardiac: RRR, Normal S1 and S2, No murmurs, gallops, rubs. Pulm: Clear to auscultation b/l. No wheezing, crackles, rhonchi Abd: Bowel Sounds present. Abdomen is soft, non-tender, non-distended. No guarding, rebound tenderness, or rigidity. No hepatosplenomegaly. No masses or eccymosis. Ext: No edema or cyanosis Neuro: AOx3 Strength +5/5 BUE and BLE. CN 3-12 grossly intact. Displayed increased agitation and restlessness, but nothing consistent with tremor-like activity. Psych: Thought process intact, acted appropriately during conversation LABORATORY DATA: See below. IMAGIN12/17/[address]: 1. No acute intracranial pathology. 2. Mild mucosal thickening of the paranasal sinuses. Chest X-ray: No acute findings. MICROBIOLOGY: Please see below. ASSESSMENT/PLAN: #. Methamphetamine intoxication - Since the half life of methamphetamine is 4-6 hours it is unlikely that the last time the patient used was on Monday, particularly given his behavior ea rlier today. He denies any other drug use, however phenobarbital also showed up in his urine toxicology - Patient has lorazepam ordered prn for agitation, we also have a 1:1 sitter for him in the event he becomes agitated again since the timing of his last use seems to be unclear based on his history of taking methamphetamine. #. Rhabdomyolysis -CK currently elevated at 2600, we are running maintenance fluids at 150/hour and will recheck his CK again in the morning. Patient has so far received 3600 mL of fluid. #. JORGE -This is likely due to dehydration and from the methamphetamine use, we'll continue to hydrate the patient and recheck a BMP again tomorrow morning to assess his renal function. #. Tachycardia - This has been downtrending since his arrival to [facility] ED so for the time being we will continue to monitor, patient is on telemetry for this as well. #. HIV -Continue anti-retroviral home medication, Biktarvy #. Sjogren's syndrome -Continue Plaquenil #. Bipolar depression -Continue duloxetine, trazodone, latuda #. Herpes -Continue valtrex #.Fibromyalgia -Continue flexoril, duloxetine, and lyrica -DVT prophy: Teds/Sequentials, heparin Disposition: med/surg Vital Signs Vital Signs Date Time Temp Pulse Resp B/P (MAP) Pulse Ox O2 Delivery O2 Flow Rate FiO2 12/18/18 01:31 108 94 12/18/18 01:00 148/83 (104) 12/17/18 20:21 20 12/17/18 18:22 100.2 Room Air Laboratory Data Labs 24H Laboratory Tests 2 12/17/18 18:29: Immature Granulocyte % (Auto) 0.3, White Blood Count 9.9, Red Blood Count 5.26, Hemoglobin 15.6, Hematocrit 44.8, Mean Corpuscular Volume 85.2, Mean Corpuscular Hemoglobin 29.7, Mean Corpuscular Hemoglobin Concent 34.8, Red Cell Distribution Width 12.5, Platelet Count 341, Neutrophils (%) (Auto) 66.4H, Lymphocytes (%) (Auto) 19.3L, Monocytes (%) (Auto) 11.4H, Eosinophils (%) (Auto) 1.7, Basophils (%) (Auto) 0.9, Neutrophils # (Auto) 6.6, Lymphocytes # (Auto) 1.9, Monocytes # (Auto) 1.1H, Eosinophils # (Auto) 0.2, Basophils # (Auto) 0.1, Nucleated Red Blood Cells % (auto) 0.0, Anion Gap 11, Glomerular Filtration Rate 43.8L, Lactic Acid Level 1.4, Calcium Level 9.2, Aspartate Amino Transf (AST/SGOT) 77H, Karthik ne Aminotransferase (ALT/SGPT) 53, Alkaline Phosphatase 99, Total Bilirubin 0.9, Direct Bilirubin 0.3H, Total Creatine Kinase 2667H, Creatine Kinase MB 16.0H, Creatine Kinase MB Relative Index 0.60, Troponin I < 0.02, Total Protein 8.2, Albumin 4.5, Albumin/Globulin Ratio 1.22, Thyroid Stimulating Hormone (TSH) 1.420, Salicylates Level < 1.7L, Acetaminophen Level < 2.0L, Ethyl Alcohol Level < 0.003 12/17/18 18:49: Bedside Glucose (Misc Panel) 94 12/17/18 19:49: Urine Color YELLOW, Urine Appearance HAZY, Urine pH 5.0, Urine Specific [place] 1.015, Urine Protein 1+H, Urine Glucose (UA) NEGATIVE, Urine Ketones 1+H, Urine Blood 1+H, Urine Nitrite NEGATIVE, Urine Bilirubin NEGATIVE, Urine Urobilinogen 0.2, Urine Leukocyte Esterase NEGATIVE, Urine WBC (Auto) 1, Urine RBC (Auto) 3, Urine Hyaline Casts (Auto) 0, Urine Bacteria (Auto) NEGATIVE, Urine Squamous Epithelial Cells 0, Urine Mucus (Auto) SMALL, Urine Sperm (Auto) , Urine Amphetamines Screen POSITIVEH, Urine Benzodiazepines Screen NEGATIVE, Urine Opiates Screen NEGATIVE, Urine Methadone Screen NEGATIVE, Urine Barbiturates Screen POSITIVEH, Urine Phencyclidine Screen NEGATIVE, Urine Cocaine Metabolite Screen NEGATIVE, Urine Cannabinoids Screen NEGATIVE CBC/BMP Laboratory Tests 12/17/18 18:29 Red Blood Count 5.26, Mean Corpuscular Volume 85.2, Mean Corpuscular Hemoglobin 29.7, Mean Corpuscular Hemoglobin Concent 34.8, Red Cell Distribution Width 12.5, Neutrophils (%) (Auto) 66.4 H, Lymphocytes (%) (Auto) 19.3 L, Monocytes (%) (Auto) 11.4 H, Eosinophils (%) (Auto) 1.7, Basophils (%) (Auto) 0.9, Neutrophils # (Auto) 6.6, Lymphocytes # (Auto) 1.9, Monocytes # (Auto) 1.1 H, Eosinophils # (Auto) 0.2, Basophils # (Auto) 0.1 Home Medications Scheduled Bictegrav/Emtricit/Tenofov Ala (Biktarvy 50-200-25 mg Tablet) 1 Each Tablet, 1 TAB PO DAILY Duloxetine HCl (Duloxetine HCl) 60 Mg Capsule.dr, 60 MG PO BID Hydroxychloroquine Sulfate (Hydroxychloroquine Sulfate) 200 Mg Tablet, 200 MG PO BID Lamotrigine (Lamotrigine) 100 Mg Tablet, 100 MG PO DAILY Pregabalin (Lyrica) 200 Mg Capsule, 200 MG PO TID Valacyclovir HCl (Valtrex) 500 Mg Tablet, 500 MG PO DAILY Scheduled PRN Cyclobenzaprine HCl (Cyclobenzaprine HCl) 10 Mg Tablet, 20 MG PO QHS PRN for MUSCLE SPASMS Trazodone HCl (Trazodone HCl) 100 Mg Tablet, 100 MG PO QHS PRN for SLEEP Allergies Coded Allergies: No Known Drug Allergies (Verified Allergy, Unknown, 12/17/18) A-FIB/CHADSVASC A-FIB History Current/History of A-Fib/PAF?: No Current PO Anticoag Therapy: No GME ATTESTATION GME ATTESTATION My faculty preceptor for this patient encounter was physically present during the encounter and was fully available. All aspects of the patient interview, examination, medical decision making process, and medical care plan development were reviewed and approved by the faculty preceptor. The faculty preceptor is aware and concurs with the plan as stated in the body of this note and will attest to such by his/her cosignature. SHERYL CLIFFORD DO Dec 18, 2018 02:32
[2018-12-18] MEDS ORDERED: VIAG100T PO (02:41)
[2018-12-18] MEDS: HEPARIN SOD (PORCINE) 5000 UNITS/ML VIAL SC SCH ×3 (05:49→21:17)
--- NOTE | 2018-12-18 07:14 | REP ---
CHEST, PORTABLE: There is no evidence of acute infiltrate. No pleural effusion is seen. The heart is normal in size. The mediastinal silhouette is unremarkable. The visualized osseous structures are intact. IMPRESSION: No acute pulmonary disease. Electronically Signed by Vahid Carroll MD 12/18/2018 11:54 P
[2018-12-18] MEDS: lamoTRIgine 100MG TAB PO SCH (09:36)
[2018-12-18] MEDS: valACYclovir HCL 500 MG TAB PO SCH (09:37)
[2018-12-18] MEDS: BIKTARVY PO SCH (09:38)
[2018-12-18] MEDS: CYCLOBENZAPRINE 10 MG TAB PO PRN ×2 (11:39→21:27)
[2018-12-18 15:30] VITALS: BP 134/85
[2018-12-18 22:00] VITALS: BP 130/82
[2018-12-19] MEDS: NS 1,000 ML IV SCH ×3 (04:42→19:21)
[2018-12-19 06:13] LABS: HEMATOCRIT 33.9 % (42.0-52.0); MEAN CORPUSCULAR HEMOGLOBIN 30.4 pg (27.0-33.0); MEAN CORPUSCULAR HGB CONC 34.2 g/dl (32.0-36.5); MEAN CORPUSCULAR VOLUME 88.7 fl (80.0-96.0); PLATELET COUNT, AUTOMATED 205 10^3/uL (150-450); RED BLOOD COUNT 3.82 10^6/uL (4.30-6.10); WHITE BLOOD COUNT 3.7 10^3/uL (4.0-10.0)
[2018-12-19 06:16] LABS: HEMOGLOBIN 11.6 g/dl (13.5-17.5)
[2018-12-19] MEDS: HEPARIN SOD (PORCINE) 5000 UNITS/ML VIAL SC SCH ×3 (06:22→21:03)
[2018-12-19 06:37] LABS: ALBUMIN 2.9 GM/DL (3.2-5.2); ALT/SGPT 50 U/L (12-78); BILIRUBIN,TOTAL 0.3 MG/DL (0.2-1.0); BLOOD UREA NITROGEN 10 MG/DL (7-18); CALCIUM LEVEL 7.8 MG/DL (8.5-10.1); CARBON DIOXIDE LEVEL 26 MEQ/L (21-32); CHLORIDE LEVEL 115 MEQ/L (98-107); CPK CREATINE PHOSPHOKINASE 2738 U/L (39-308); CREATININE FOR GFR 1.08 MG/DL (0.70-1.30); GLOMERULAR FILTRATION RATE > 60.0 (>60); GLUCOSE, FASTING 85 MG/DL (70-100); POTASSIUM SERUM 3.4 MEQ/L (3.5-5.1); SODIUM LEVEL 146 MEQ/L (136-145); TOTAL PROTEIN 5.7 GM/DL (6.4-8.2)
[2018-12-19 08:00] VITALS: BP 142/96
[2018-12-19] MEDS: DULoxetine 30 MG CAP (CYMBALTA) PO SCH ×2 (08:38→21:02)
[2018-12-19] MEDS: PREGABALIN 100 MG CAP (LYRICA) PO SCH ×3 (08:38→21:02)
[2018-12-19] MEDS: lamoTRIgine 100MG TAB PO SCH (08:39)
[2018-12-19] MEDS: valACYclovir HCL 500 MG TAB PO SCH (08:39)
[2018-12-19] MEDS: HYDROXYCHLOROQUINE 200 MG TAB PO SCH ×2 (08:44→21:02)
[2018-12-19] MEDS: BIKTARVY PO SCH (08:44)
[2018-12-19 14:00] VITALS: BP 128/92
--- NOTE | 2018-12-19 20:35 | IPNPDOC ---
Text Note Date of Service The patient was seen on 12/19/18. NOTE Subjective: Patient complains of anxiety, but stated that he doesn't have any suicidal ideation. He denies fever, chills, nausea, vomiting, diarrhea or dysuria Objective: General: In mild distress, speech pressured HEENT: Normocephalic, atraumatic. EOMI. No scleral icterus. Moist mucous membranes. No pharyngeal erythema or uvular deviation. Neck: No JVD, lymphadenopathy, or thyromegaly. Cardiac: RRR, Normal S1 and S2, No murmurs, gallops, rubs. Pulm: Clear to auscultation b/l. No wheezing, crackles, rhonchi Abd: Bowel Sounds present. Abdomen is soft, non-tender, non-distended. No guarding, rebound tenderness, or rigidity. No hepatosplenomegaly. No masses or e ccymosis. Ext: No edema or cyanosis Neuro: AOx3 Strength +5/5 BUE and BLE. CN 3-12 grossly intact. Psych: Thought process intact, acted appropriately during conversation, pressured speech A/P Patient is 58 years old male presenting to the hospital with altered mental status, due to methamphetamine intoxication. #. Methamphetamine intoxication Patient mental status improved, he is alert, oriented, awake Continue lorazepam for agitation when necessary. DC sitter #. Rhabdomyolysis -Continue volume expansion with IV. #. JORGE -Secondary to dehydration and rhabdomyolysis Continue to monitor #. Tachycardia Resolved - This has been downtrending since his arrival to [facility] ED #. HIV -Continue anti-retroviral home medication, Biktarvy #. Sjogren's syndrome -Continue Plaquenil #. Bipolar depression -Continue duloxetine, trazodone, latuda #. Herpes -Continue valtrex #.Fibromyalgia -Continue flexoril, duloxetine, and lyrica VS,Fishbone, I+O VS, Fishbone, I+O Laboratory Tests 12/19/18 05:32 Red Blood Count 3.82 L, Mean Corpuscular Volume 88.7, Mean Corpuscular Hemoglobin 30.4, Mean Corpuscular Hemoglobin Concent 34.2, Red Cell Distribution Width 12.9, Calcium Level 7.8 #L, Aspartate Amino Transf (AST/SGOT) 74 H, Alanine Aminotransferase (ALT/SGPT) 50, Total Creatine Kinase 2738 H, Alkaline Phosphatase 70, Total Bilirubin 0.3 #, Total Protein 5.7 #L, Albumin 2.9 #L Vital Signs Date Time Temp Pulse Resp B/P (MAP) Pulse Ox O2 Delivery O2 Flow Rate FiO2 12/19/18 14:00 97.7 84 17 128/92 (104) 83 12/18/18 15:02 Room Air I&O- Last 24 Hours up to 6 AM 12/19/18 06:00 Intake Total 6520 ml Output Total 1100 ml Balance 5420 ml FATEMEH CASTANO DO Dec 19, 2018 20:35
[2018-12-19] MEDS: traZODone 100 MG TAB PO PRN (21:16)
[2018-12-19] MEDS: CYCLOBENZAPRINE 10 MG TAB PO PRN (21:16)
[2018-12-19 22:00] VITALS: BP 145/87
[2018-12-20] MEDS: NS 1,000 ML IV SCH ×2 (02:22→06:20)
[2018-12-20 06:00] VITALS: BP 119/77
[2018-12-20] MEDS: HEPARIN SOD (PORCINE) 5000 UNITS/ML VIAL SC SCH (06:09)
[2018-12-20] MEDS: PREGABALIN 100 MG CAP (LYRICA) PO SCH (09:01)
[2018-12-20] MEDS: HYDROXYCHLOROQUINE 200 MG TAB PO SCH (09:02)
[2018-12-20] MEDS: DULoxetine 30 MG CAP (CYMBALTA) PO SCH (09:02)
[2018-12-20] MEDS: BIKTARVY PO SCH (09:02)
[2018-12-20] MEDS: valACYclovir HCL 500 MG TAB PO SCH (09:02)
[2018-12-20] MEDS: lamoTRIgine 100MG TAB PO SCH (09:02)
--- NOTE | 2018-12-20 18:57 | DS.PDOC ---
Discharge Summary General Date of Admission Dec 17, 2018 at 18:17 Date of Discharge 12/20/18 Primary Care Physician: Nadir Valera MD Attending Physician: FATEMEH CASTANO DO Discharge Summary PROCEDURES PERFORMED DURING STAY: None. ADMITTING DIAGNOSES: Methamphetamine intoxication Rhabdomyolysis JORGE Tachycardia HIV Sjogren's syndrome Bipolar depression Herpes Fibromyalgia DISCHARGE DIAGNOSES: Methamphetamine intoxication Rhabdomyolysis JORGE Tachycardia HIV Sjogren's syndrome Bipolar depression Herpes Fibromyalgia COMPLICATIONS/CHIEF COMPLAINT: Methamphetamine Abuse. HISTORY OF PRESENT ILLNESS: Patient is a 48 year old male presenting with chief complaint of altered mental status. The patient was brought into the emergency department by police after a neighbor called [place] [employer] when they noticed the patient acting strangely. Per the ER report, he was searching for people in his garage and a tree that he felt were trying to get him. Per the patient's own report, the police felt he was being more aggressive and acting more agitated than he actually was. On arrival to the emergency department he was still agitated but after receiving some normal saline that seemed to calm down on its own. On speaking to him, patient states that he used methamphetamine this past Monday and that's why he was altered. He also complains of poor sleep, dry mouth, dry eyes. He states that the dryness is because of his sjogrens but he admits the inability to sleep is likely from the amphetamine use. In the emergency department they did lab work that did show urine amphetamines as well as urine barbiturates however he denies any other illicit drug use in the past week at this time. Other than his poor sleep, he currently has no complaints. He does note that he feels somewhat tremulous but states that this has been worsening for at least the last 1.5 months, but did exist at baseline prior to 1.5 months ago. HOSPITAL COURSE: During hospital stay patient was found to have rhabdomyolysis with significant increased CPK closely. Patient received supportive treatment with IV hydration, kidney function stabilized. Altered mental status resolved. DISCHARGE MEDICATIONS: Please see below. ALLERGIES: Please see below. PHYSICAL EXAMINATION ON DISCHARGE: VITAL SIGNS: Please see below. General: NAD HEENT: Normocephalic, atraumatic. EOMI. No scleral icterus. Moist mucous membranes. No pharyngeal erythema or uvular deviation. Neck: No JVD, lymphadenopathy, or thyromegaly. Cardiac: RRR, Normal S1 and S2, No murmurs, gallops, rubs. Pulm: Clear to auscultation b/l. No wheezing, crackles, rhonchi Abd: Bowel Sounds present. Abdomen is soft, non-tender, non-distended. No guarding, rebound tenderness, or rigidity. No hepatosplenomegaly. No masses or eccymosis. Ext: No edema or cyanosis Neuro: AOx3 Strength +5/5 BUE and BLE. CN 3-12 grossly intact. Psych: Thought process intact, acted appropriately during conversation, pressured speech LABORATORY DATA: Please see below. EXAM: CT Head Without Contrast EXAM DATE/TIME: 12/17/2018 7:13 PM CLINICAL HISTORY: 48 years old, male; Pain; Headache; Additional info: Altered ms TECHNIQUE: Imaging protocol: Computed tomography images of the head without contrast. Radiation optimization: All CT scans at this facility use at least one of these dose optimization techniques: automated exposure control; mA and/or kV adjustment per patient size (includes targeted exams where dose is matched to clinical indication); or iterative reconstruction. COMPARISON: No relevant prior studies available. FINDINGS: Brain: No intracranial hemorrhage or extra-axial fluid collection. No evidence of mass effect or midline shift. Carroll-white matter differentiation is intact. Ventricles: No ventriculomegaly. Bones/joints: No acute osseus lesion or fracture. Sinuses: Mild mucosal thickening of the paranasal sinuses. Mastoid air cells: Unremarkable. Soft tissues: Unremarkable. IMPRESSION: 1. No acute intracranial pathology. 2. Mild mucosal thickening of the paranasal sinuses. Electronically signed by: Robert Brunner On 12/17/2018 20:33:59 PM PROGNOSIS: Favorable ACTIVITY: As tolerated DIET: Regular DISCHARGE PLAN: Follow-up with PCP in one week DISPOSITION: 01 Home, Self-Care. DISCHARGE INSTRUCTIONS: 1. Drink plenty of fluid for the next week DISCHARGE CONDITION: Stable TIME SPENT ON DISCHARGE: Greater than 20 minutes. Vital Signs/I&Os Vital Signs Date Time Temp Pulse Resp B/P (MAP) Pulse Ox O2 Delivery O2 Flow Rate FiO2 12/20/18 06:00 96.9 65 20 119/77 (91) 98 12/18/18 15:02 Room Air I&O- Last 24 Hours up to 6 AM 12/20/18 06:00 Intake Total 4110 ml Balance 4110 ml Laboratory Data Labs 24H Laboratory Tests 2 12/20/18 05:31: Total Creatine Kinase 954H Discharge Medications Scheduled Bictegrav/Emtricit/Tenofov Ala (Biktarvy 50-200-25 mg Tablet) 1 Each Tablet, 1 TAB PO DAILY, (Reported) Duloxetine HCl (Duloxetine HCl) 60 Mg Capsule.dr, 60 MG PO BID, (Reported) Hydroxychloroquine Sulfate (Hydroxychloroquine Sulfate) 200 Mg Tablet, 200 MG PO BID, (Reported) Lamotrigine (Lamotrigine) 100 Mg Tablet, 100 MG PO DAILY, (Reported) Pregabalin (Lyrica) 200 Mg Capsule, 200 MG PO TID, (Reported) Valacyclovir HCl (Valtrex) 500 Mg Tablet, 500 MG PO DAILY, (Reported) Scheduled PRN Cyclobenzaprine HCl (Cyclobenzaprine HCl) 10 Mg Tablet, 20 MG PO QHS PRN for MUSCLE SPASMS, (Reported) Sildenafil Citrate (Viagra) 100 Mg Tablet, 100 MG PO DAILY PRN for ERECTILE DYSFUNCTION, (Reported) Trazodone HCl (Trazodone HCl) 100 Mg Tablet, 100 MG PO QHS PRN for SLEEP, (Reported) Allergies Coded Allergies: No Known Drug Allergies (Verified Allergy, Unknown, 12/17/18) FATEMEH CASTANO DO Dec 20, 2018 18:57
[2018-12-25 08:06] LABS: MDPV Negative (NEGATIVE); MEPHEDRONE Negative (NEGATIVE); METHYLONE Negative (NEGATIVE)
== END 2018-12-20 12:09 | disposition home or self-care (01) ==
LOC: M ED 18:16 → M ED INP 18:17 → M MSPAV 12-18 15:21
PROVIDERS: ADMIT Internal Medicine; ATTEND Internal Medicine
DX: F15.129 Other stimulant abuse with intoxication, unspecified (principal); M62.82 Rhabdomyolysis; N17.9 Acute kidney failure, unspecified; R00.0 Tachycardia, unspecified; B20 Human immunodeficiency virus [HIV] disease; M35.00 Sjogren syndrome, unspecified; F31.9 Bipolar disorder, unspecified; M79.7 Fibromyalgia; B00.9 Herpesviral infection, unspecified; M50.30 Other cervical disc degeneration, unspecified cervical region; Z79.899 Other long term (current) drug therapy
CPT/HCPCS: 36415; 70450; 71045; 80048; 80053; 80076; 80307; 81001; 82140; 82550; 82553; 83605; 84443; 85025; 85027; 93005; 93041; 94760; 96360; 96361; 96372; 97161; 99285; G0480

== ENCOUNTER → 2019-03-11 | Outpatient (REF) | payer OTHER ==
[~2019-03-11] MED LIST changes: +LAMO100T; +LAMO100T PO; -LAMO100T3; -LAMO100T3 PO; +TRAZ-163; +TRAZ-163 PO; -TRAZ-257; -TRAZ-257 PO
[2019-03-11 14:46] LABS: BASO % 1.1 % (0.0-1.0); EOS # 0.1 10^3/uL (0.0-0.5); HEMATOCRIT 46.2 % (42.0-52.0); HEMOGLOBIN 15.2 g/dl (13.5-17.5); LYMPH # 1.4 10^3/uL (1.5-5.0); LYMPH % 38.9 % (24.0-44.0); MEAN CORPUSCULAR HGB CONC 32.9 g/dl (32.0-36.5); MEAN CORPUSCULAR VOLUME 91.1 fl (80.0-96.0); MONO # 0.4 10^3/uL (0.0-0.8); MONO % 11.8 % (0.0-5.0); NEUTROPHILS # 1.6 10^3/uL (1.5-8.5); NEUTROPHILS % 44.9 % (36.0-66.0); PLATELET COUNT, AUTOMATED 355 10^3/uL (150-450); RED BLOOD COUNT 5.07 10^6/uL (4.30-6.10); WHITE BLOOD COUNT 3.7 10^3/uL (4.0-10.0)
[2019-03-11 14:54] LABS: ALBUMIN 4.1 GM/DL (3.2-5.2); ALT/SGPT 31 U/L (12-78); BILIRUBIN,TOTAL 0.5 MG/DL (0.2-1.0); BLOOD UREA NITROGEN 14 MG/DL (7-18); CALCIUM LEVEL 9.4 MG/DL (8.5-10.1); CARBON DIOXIDE LEVEL 30 MEQ/L (21-32); CHLORIDE LEVEL 107 MEQ/L (98-107); CREATININE FOR GFR 1.14 MG/DL (0.70-1.30); GLOMERULAR FILTRATION RATE > 60.0 (>60); GLUCOSE, FASTING 92 MG/DL (70-100); POTASSIUM SERUM 4.2 MEQ/L (3.5-5.1); SODIUM LEVEL 142 MEQ/L (136-145); TOTAL PROTEIN 7.3 GM/DL (6.4-8.2)
[2019-03-11 16:07] LABS: CHLAMYDIA DNA AMPLIFICATION NEGATIVE (NEGATIVE); GC DNA AMPLIFICATION NEGATIVE (NEGATIVE)
== END ==
LOC: M SFHCPLAZ 11:21
PROVIDERS: ATTEND Internal Medicine Infectious Disease
DX: M35.00 Sjogren syndrome, unspecified (principal); F22 Delusional disorders; B20 Human immunodeficiency virus [HIV] disease; A56.3 Chlamydial infection of anus and rectum